=== PATIENT | female | born 1945 | race Two or more races ===

== ENCOUNTER 2022-06-11 16:42 | Emergency (ER) | payer OTHER, MEDICAID ==
[~2022-06-11] VITALS: Ht 162.6 cm; Wt 112.0 kg
[2022-06-11 16:45] VITALS: BP 122/73
[2022-06-11 17:48] LABS: Basophils # (auto) 0.1 10 ^3/uL (0-0.2); Basophils % (auto) 0.7 % (0.0-2.0); Eosinophils # (auto) 0.2 10 ^3/uL (0-0.8); Eosinophils % (auto) 2.1 % (0.0-7.0); Hematocrit 42.7 % (36.0-46.0); Hemoglobin 14.3 g/dL (12.2-16.2); Lymphocytes # (auto) 2.3 10 ^3/uL (0.4-5.4); Lymphocytes % (auto) 28.2 % (10.0-50.0); Mean Corpuscular Hemoglobin 30.6 pg (28.0-32.0); Mean Corpuscular Hgb Conc. 33.4 g/dL (32.0-36.0); Mean Corpuscular Volume 91.5 fL (80.0-100.0); Monocytes # (auto) 0.8 10 ^3/uL (0-1.3); Monocytes % (auto) 9.1 % (0.0-12.0); Neutrophils % (auto) 59.9 % (37.0-80.0); Nucleated Red Blood Cells % 0.2 %; Red Blood Cells 4.67 10^6/uL (4.0-5.20); Red Cell Distribution Width 14.7 % (11.8-14.3); White Blood Cell 8.3 10^3/uL (4.4-10.8)
[2022-06-11 18:04] LABS: Albumin 2.9 g/dL (3.4-5.0); Anion Gap 4 (5-15); Blood Urea Nitrogen 14 mg/dL (7-18); Carbon Dioxide 25 mmol/L (21-32); Chloride 105 mmol/L (98-107); Glucose 95 mg/dL (74-106); Potassium 4.6 mmol/L (3.5-5.1); Sodium 134 mmol/L (136-145)
[2022-06-11 18:07] LABS: Urine Bacteria MANY /hpf (None Seen); Urine Blood Negative /uL (Negative); Urine Specific Gravity 1.007 (1.001-1.035); Urine WBC 43 /hpf (0 - 5)
[2022-06-11 18:09] LABS: INR 1.13 (0.9-1.15); Partial Thromboplastin Time 25.5 sec (24.6-33.4)
[2022-06-11 18:19] LABS: Alanine Aminotransferase 23 U/L (13-56); Alkaline Phosphatase 88 U/L (45-117); Aspartate Aminotransferase 18 U/L (15-37); BUN/Creatinine Ratio 13.3; Bilirubin, Total 0.4 mg/dL (0.2-1.0); GFR African American 66 mL/min; GFR Non-African American 54 mL/min; Total Protein 8.5 g/dL (6.4-8.2)
[2022-06-11] MEDS ORDERED: CEPH-322 PO (18:20)
[2022-06-11] MEDS ORDERED: METH4PAK PO (18:20)
== END 2022-06-11 20:55 | disposition home or self-care (01) ==
LOC: ER 16:42
DX: J20.9 Acute bronchitis, unspecified (principal); R07.89 Other chest pain; I12.0 Hypertensive chronic kidney disease with stage 5 chronic kidney disease or end stage renal disease; N18.6 End stage renal disease; E03.9 Hypothyroidism, unspecified; Z90.49 Acquired absence of other specified parts of digestive tract; Z79.899 Other long term (current) drug therapy
CPT/HCPCS: 36415; 71045; 71250; 80053; 81001; 83880; 84484; 85025; 85610; 85730; 93005

== ENCOUNTER 2025-02-22 12:57 | Emergency (ER) | payer OTHER, MEDICAID ==
[~2025-02-22] VITALS: Ht 165.1 cm; Wt 118.0 kg
[~2025-02-22 12:57] MED LIST: CEPH250C PO; METH4PAK PO
--- NOTE | 2025-02-22 13:29 | ED.PDOC ---
GI ASSESSMENT HPI Comments 80 y/o F, BIBA, with PMHx of anxiety, depression, ESRD, HTN, and thyroid disease presents to the ED for CC of lower and epigastric abdominal pain. EMS reports, patient is coming from home where she c/o intermittent abdominal pain with associated nausea and vomiting x1week. Patient states, she recently began a course of Abx for a UTI x4days ago; endorses symptoms improving. She has had this pain intermittently for the past few years, however states that her doctor keeps giving her medications, however she has never seen a GI doctor for this. She believes that she has IBS D, however he has never been formally diagnosed with this. She has tried Tylenol for her symptoms at home with minimal improve ment. She states that it makes her symptoms better or worse. Patient denies fever, chills, constipation, diarrhea, or melena. No other symptoms or modifying factors are present at this time. Chief Complaint: Abdominal Pain Time Seen by MD: 13:10 Primary Care Provider: JEMAL Ellis Notes: Nurses Notes, Dba Manager Notes, Medications, Allergies Allergies: Coded Allergies: NO KNOWN ALLERGIES (Unverified , 06/11/22) Home Meds Active Scripts Cephalexin (KEFLEX CAPSULE) 250 Mg Cp, 1 CAP PO QID, #28 CAP Prov:PARDEEP GUY MD 06/11/22 Methylprednisolone (Medrol Dosepak) 4 Mg [place], 4 MG PO UD, #21 TAB UAD Prov:PARDEEP GUY MD 06/11/22 Information Source: Patient, Emergency Med Personnel Mode of Arrival: EMS Timing: Weeks Duration: Intermittent Prehospital treatment: None Vomitus: Watery Stool: Normal Severity: Moderate Recent: None Recent Hx of: None Pain Location: Diffuse Modifying Factors: Nothing Associated sign and symptoms: Nausea, Vomiting, Abdominal Pain Past Medical History PAST MEDICAL HISTORY: Anxiety, Depression, ESRD, HTN, Thyroid Surgical History: Cholecystectomy, Tubal Ligation DAY TRADER History: Denies all DAY TRADER Hx Family History Family History: Family hx of lung forrest Social History Smoker: Non-Smoker Alcohol: Occasionally Drugs: Denies Drug Use Lives In: Home Constitutional: denies: chills, diaphoresis, fatigue, fever, malaise, sweats, weakness, others EENTM: denies: blurred vision, double vision, ear bleeding, ear discharge, ear drainage, ear pain, ear ringing, eye pain, eye redness, hearing loss, mouth pain, mouth swelling, nasal discharge, nose bleeding, nose congestion, nose pain, photophobia, tearing, throat pain, throat swelling, voice changes, others Respiratory: denies: cough, hemoptysis, orthopnea, SOB at rest, shortness of breath, SOB with excertion, stridor, wheezing, others Cardiovascular: denies: chest pain, dizzy spells, diaphoresis, Dyspnea on exertion, edema, irregular heart beat, left arm pain, lightheadedness, palpitations, PND, syncope, others Gastrointestinal: reports: abdominal pain, nausea, vomiting; denies: abdomen distended, blood streaked bowels, constipated, diarrhea, dysphagia, difficulty swallowing, hematemesis, melena, poor appetite, poor fluid intake, rectal bleeding, rectal pain, others Genitourinary: denies: abnormal vagina bleeding, burning, dyspareunia, dysuria, flank pain, frequency, hematuria, incontinence, pain, , vagina discharge, urgency, others Neurological: denies: dizziness, fainting, headache, left sided numbness, left sided weakness, numbness, paresthesia, pre-existing deficit, right sided numb ness, right sided weakness, seizure, speech problems, tingling, tremors, weakness, others Musculoskeletal: denies: back pain, gout, joint pain, joint swelling, muscle pain, muscle stiffness, neck pain, others Integumetry: denies: bruises, change in color, change in hair/nails, dryness, laceration, lesions, lumps, rash, wounds, others Allergic/Immunocompromised: denies: Difficulty Healing, Frequent Infections, Hives, Itching, others Hematologic/Lymphatic: denies: anemia, blood clots, easy bleeding, easy bruising, swollen glands, others Endocrine: denies: excessive hunger, excessive sweating, excessive thirst, excessive urination, flushing, intolerance to cold, intolerance to heat, unexplained weight gain, unexplained weight loss, others Psychiatric: denies: anxiety, bipolar disorder, depression, hopeless, panic disorder, schizophrenia, sleepless, suicidal, others All Other Systems: Reviewed and Negative Physical Exam General Appearance: No Apparent Distress, Normal HEENT: Normal ENT Inspection, Pharynx Normal Neck: Full Range of Motion, Non-Tender, Normal, Normal Inspection Respiratory: Chest Non-Tender, Lungs Clear, No Accessory Muscle Use, No Respiratory Distress, Normal Breath Sounds Cardiovascular: No Edema, No Murmur, No Gallop, Normal Peripheral Pulses, Regular Rate/Rhythm Breast Exam: Deferred Gastrointestinal: Diffuse, No Organomegaly, No Pulsatile Mass, Normal Bowel Sounds, Soft, Tenderness, Other (Palpable ventral hernia in the epigastric region, easily reducible) Genitalia: Deferred Pelvic: Deferred Rectal: Deferred Extremities: No calf tenderness, Normal capillary refill, Normal inspection, Normal range of motion, Non-tender, No pedal edema Musculoskeletal : Apperance: Normal Neurologic: Alert, printed circuit board panels trimmer II-XII nml as Tested, No Motor Deficits, Normal Affect, Normal Mood, No Sensory Deficits Cerebellar Function: Normal Reflexes: Normal Skin: Dry, Normal Color, Warm Lymphatic: No Adenopathy Was a procedure done? Was a procedure done?: No GI differential Dx Differential Diagnosis: Appendicitis, Angina/MN, Cholangitis, Constipation, Div erticular disease, Gastritis/PUD, Gastroenteritis, Hernia, Inflammatory BD, Pancreatitis, UTI, Dehydration, Electrolyte Imbalance, Bacterial, Viral, Renal Failure, Kidney Stone X-Ray, Labs, Meds, VS Vital Signs Date Time Temp Pulse Resp B/P (MAP) Pulse Ox O2 Delivery O2 Flow Rate FiO2 02/22/25 18:01 94 15 120/69 02/22/25 17:54 94 16 120/69 (86) 95 02/22/25 15:42 85 19 153/70 02/22/25 15:42 98.0 85 20 153/70 (97) 95 98.0 02/22/25 13:09 98.5 93 18 120/81 94 98.5 Lab Test 02/22/25 17:57 02/22/25 17:02 02/22/25 15:01 02/22/25 13:42 Range/Units Urine Color Yellow Yellow Urine Clarity Clear Clear Urine pH 6.0 5.0-9.0 Urine Specific [place] > 1.050 H 1.001-1.035 Urine Protein 1+ H Negative Urine Ketones Negative Negative Urine Blood Negative Negative /uL Urine Nitrite Negative Negative Urine Bilirubin Negative Negative Urine Urobilinogen Normal Negative mg/dL Urine Leukocyte Esterase Negative Negative /uL Urine RBC 1 0 - 4 /hpf Urine Microscopic WBC 5 0-5 /HPF Urine Squamous Epithelial Cells Mod <5 /hpf Urine Bacteria None seen None Seen /hpf Urine Mucus Few None Seen Urine Glucose Normal Normal mg/dL Troponin I High Sensitivity 4 3 L 3 L </=34 ng/L White Blood Count 9.1 4.4-10.8 10^3/uL Red Blood Count 4.70 4.0-5.20 10^6/uL Hemoglobin 14.4 12.2-16.2 g/dL Hematocrit 43.1 36.0-46.0 % Mean Corpuscular Volume 91.8 80.0-100.0 fL Mean Corpuscular Hemoglobin 30.7 28.0-32.0 pg Mean Corpuscular Hemoglobin Concent 33.4 32.0-36.0 g/dL Red Cell Distribution Width 15.5 H 11.8-14.3 % Platelet Count 215 140-450 10^3/uL Mean Platelet Volume 8.9 6.9-10.8 fL Neutrophils (%) (Auto) 68.6 37.0-80.0 % Lymphocytes (%) (Auto) 23.2 10.0-50.0 % Monocytes (%) (Auto) 5.8 0.0-12.0 % Eosinophils (%) (Auto) 1.6 0.0-7.0 % Basophils (%) (Auto) 0.8 0.0-2.0 % Neutrophils # (Auto) 6.2 1.6-8.6 10 ^3/uL Lymphocytes # (Auto) 2.1 0.4-5.4 10 ^3/uL Monocytes # (Auto) 0.5 0-1.3 10 ^3/uL Eosinophils # (Auto) 0.1 0-0.8 10 ^3/uL Basophils # (Auto) 0.1 0-0.2 10 ^3/uL Nucleated Red Blood Cells 0.0 % Sodium Level 138 136-145 mmol/L Potassium Level 4.1 3.5-5.1 mmol/L Chloride Level 102 98-107 mmol/L Carbon Dioxide Level 26 20-31 mmol/L Anion Gap 10 5-15 Blood Urea Nitrogen 10 9-23 mg/dL Creatinine 1.00 0.550-1.02 mg/dL Glomerular Filtration Rate Calc 58 >90 mL/min BUN/Creatinine Ratio 10.0 10.0-20.0 Serum Glucose 117 H 74-106 mg/dL Calcium Level 9.3 8.7-10.4 mg/dL Total Bilirubin 0.5 0.2-1.0 mg/dL Aspartate Amino Transferase (AST) 14 13-40 U/L Alanine Aminotransferase (ALT) 13 7-40 U/L Alkaline Phosphatase 70 46-116 U/L Total Protein 7.5 5.7-8.2 g/dL Albumin 4.0 3.2-4.8 g/dL Lipase 26 12-53 U/L Current Medications Medications (Trade) Dose Ordered Sig/Michael Route Start Time Stop Time Status Last Admin Ondansetron HCl (Zofran) 4 mg ONCE ONCE IV 02/22/25 13:15 02/22/25 13:18 DC 02/22/25 15:42 Morphine Sulfate 4 mg ONCE ONCE IV 02/22/25 13:15 02/22/25 13:18 DC 02/22/25 15:42 [place] [id number] Ph: [phone] DIAGNOSTIC IMAGING Diagnostic Imaging Report : [id number] Signed PATIENT: KAVYA RAMESHCCT: [id number] UNIT: [id number] : 1945 LOC: ER ROOM / BED: / AGE / SEX: 80 / F ADM STATUS: REG ER SERVICE 11 ORDERING PHYSICIAN: WANDER FINNEGAN MD PROCEDURE(s): ABPLIV - CT AB PEL WITH IV CON ONLY REASON: lower abdominal pain ORDER NUMBER(s): [id number], ACCESSION NUMBER(s): [id number] Exam: CT CT AB PEL WITH IV CON ONLY History: lower abdominal pain Comparison Study: None TECHNIQUE: Multidetector CT of the abdomen pelvis with IV contrast. Axial, co lalito and sagittal multiplanar reformats were obtained from the axial data set by the technologist. Radiation Dose Information: CT Dose: CTDI volume is 27.78 mGy. Dose-length product is 1458.07 mGy*cm FINDINGS: Lung bases are clear. Partially visualized heart is unremarkable. Hepatic steatosis. Mild splenomegaly. Otherwise, liver, spleen, pancreas and adrenal glands unremarkable. Status post cholecystectomy. Small bilateral renal parapelvic cyst. Otherwise, kidneys, ureters and urinary bladder unremarkable. Uterus and adnexa areunremarkable. Small hiatal hernia. Stomach is unremarkable. Small bowel loops unremarkable. Appendix is unremarkable. Mild wall thickening of the ascending colon. Sigmoid diverticulosis with minimal adjacent fat stranding and mild wall thickening of the sigmoid. Small to moderate amount of fecal material within the colon. No evidence of intraperitoneal free air or free fluid. No evidence of aortic aneurysm or dissection. Mild atherosclerotic calcification of the aorta. No significant lymphadenopathy. Small fat containing umbilical hernia. Moderate fat and ascitic fluid containing supraumbilical hernia. Peripherally calcified partially visualized bilateral breast implants. No evidence of acute osseous abnormalities. IMPRESSION: Mild sigmoid diverticulitis /sigmoiditis. Colitis involving the ascending colon. Follow-up is Imaging is recommended to exclude Neoplasm. Moderate fat and small fluid containing supraumbilical hernia with small fat containing umbilical hernia. Hepatic steatosis. Small hiatal hernia. ATED BY: ESTRELLITA DUNCAN DO DICTATED DATE/TIME: 02/22/25 1557 SIGNED BY: ESTRELLITA DUNCAN DO SIGNED DATE/TIME: 02/22/25 155 CC: X-Ray, Labs, Meds, VS Comment Patient presents with generalized abdominal pain for the past week, intermittent over the past few years, associated with nausea and vomiting setting of recently diagnosed UTI. Vital signs stable and exam rectal for epigastric and lower abdominal tenderness Lab work (CBC, BMP) to evaluate for evidence of severe anemia, electrolyte abnormality including hypokalemia, hyperkalemia, hypernatremia, hyponatremia, hyperglycemia, hypoglycemia, etc. EKG and troponin to evaluate for evidence of arrhythmia, ACS, AMI CT abdomen and pelvis to evaluate for evidence of intra-abdominal emergency including acute appendicitis, diverticulitis, renal stone, SBO, etc. Urinalysis to evaluate for hematuria or infection. IV zofran IV morphine Social determinant surveillance affecting care: Social determinants of health that will affect the patient's care: Poor health literacy (additional time provided an explanation) Poor access to outpatient care/followup (provided outpatient resources) Time of 1ST Reevaluation: 13:40 Reevaluation 1ST: Unchanged Patient Education/Counseling: Diagnosis, Treatment Family Education/Counseling: No Family Present SEPSIS Sepsis Screen Date sepsis recognized/suspect: Feb 22, 2025 Time Sepsis recognized/suspect: 1313 Recent Procedure: No On Antibiotic Therapy: No Respiratory Rate >20: No Heart Rate >90: Yes Temp<36 C (96.8 F) or >38.3 C: No SBP <90 or MAP <65 mmHG: No New Acute Mental Status Change: No Is the patient on CPAP, BIPAP,: No Physician Orders Ct Ab Pel With Iv Con Only (02/22/25 14:12) Electrocardigram (02/22/25 13:15) Electrocardigram (02/22/25 14:15) Electrocardigram (02/22/25 16:15) Vital Signs Date Time Temp Pulse Resp B/P (MAP) Pulse Ox O2 Delivery O2 Flow Rate FiO2 02/22/25 18:01 94 15 120/69 02/22/25 17:54 94 16 120/69 (86) 95 02/22/25 15:42 85 19 153/70 02/22/25 15:42 98.0 85 20 153/70 (97) 95 98.0 02/22/25 13:09 98.5 93 18 120/81 94 98.5 Laboratory Tests Test 02/22/25 13:42 White Blood Count 9.1 10^3/uL (4.4-10.8) Medications Medications Dose Ordered Sig/Michael Route Start Time Stop Time Status Last Admin Dose Admin Morphine Sulfate 4 mg ONCE ONCE IV 02/22/25 13:15 02/22/25 13:18 DC 02/22/25 15:42 Ondansetron HCl 4 mg ONCE ONCE IV 02/22/25 13:15 02/22/25 13:18 DC 02/22/25 15:42 Departure 1 Departure Time of Disposition: 19:46 (On reassessment, patient's symptoms improved and patient tolerating p.o.. Labs unremarkable and imaging showing mild sigmoid diverticulitis. We will discharge her p.o. antibiotics. Discussed with patient need for outpatient follow-up with GI. Given strict return precaution and PMD follow-up.) Impression: Primary Impression: Acute generalized abdominal pain Additional Impressions: Acute nausea with nonbilious vomiting Acute diverticulitis Disposition: HOME / SELF CARE / HOMELESS Condition: Good Additional Instructions: You have diverticulitis today. Follow up with your PMD and GI for further evaluation. Take your antibiotics as prescribed. Slowly advanced your diet as tolerated. e-Prescriptions Ciprofloxacin Hcl (Ciprofloxacin Hcl) 500 Mg Tab 1 TAB PO BID, #20 TAB Prov: WANDER FINNEGAN MD 02/22/25 Metronidazole (Flagyl) 500 Mg Tab 1 TAB PO TID, #30 TAB Prov: WANDER FINNEGAN MD 02/22/25 Discharged With: Self Critical Care Note Critical Care Time?: No Stability Stability form required: No Heart Score Heart Score: Heart Score Response (Comments) Value History N/A 0 EKG N/A 0 Age N/A 0 Risk Factors N/A 0 Troponin N/A 0 Total 0 I personally scribed for WANDER FINNEGAN MD ([email or web address]) on 02/22/25 at 13:29. Electronically submitted by Earlene Sanchez [email or web address]). I personally scribed for WANDER FINNEGAN MD ([email or web address]) on 02/22/25 at 16:12. E lectronically submitted by Earlene Sanchez [email or web address]). WANDER FINNEGAN MD Feb 22, 2025 13:29
[2025-02-22 14:06] LABS: Hematocrit 43.1 % (36.0-46.0); Hemoglobin 14.4 g/dL (12.2-16.2); Mean Corpuscular Hemoglobin 30.7 pg (28.0-32.0); Mean Corpuscular Volume 91.8 fL (80.0-100.0); Nucleated Red Blood Cells % 0.0 %
[2025-02-22 14:20] LABS: Alanine Aminotransferase 13 U/L (7-40); Albumin 4.0 g/dL (3.2-4.8); Alkaline Phosphatase 70 U/L (46-116); Anion Gap 10 (5-15); BUN/Creatinine Ratio 10.0 (10.0-20.0); Bilirubin, Total 0.5 mg/dL (0.2-1.0); Blood Urea Nitrogen 10 mg/dL (9-23); Calcium 9.3 mg/dL (8.7-10.4); Carbon Dioxide 26 mmol/L (20-31); Chloride 102 mmol/L (98-107); Lipase 26 U/L (12-53); Potassium 4.1 mmol/L (3.5-5.1); Sodium 138 mmol/L (136-145); Total Protein 7.5 g/dL (5.7-8.2)
[2025-02-22 14:22] LABS: Glucose 117 mg/dL (74-106)
[2025-02-22] MEDS: ONDANSETRON HCL 4 MG/2 ML VIAL IV ONE (15:42)
[2025-02-22] MEDS: MORPHINE SULFATE 4 MG/ML SYR/VIAL IV ONE (15:42)
--- NOTE | 2025-02-22 15:59 | DVH ---
Exam: CT CT AB PEL WITH IV CON ONLY History: lower abdominal pain Comparison Study: None TECHNIQUE: Multidetector CT of the abdomen pelvis with IV contrast. Axial, coronal and sagittal multiplanar reformats were obtained from the axial data set by the technologist. Radiation Dose Information: CT Dose: CTDI volume is 27.78 mGy. Dose-length product is 1458.07 mGy*cm FINDINGS: Lung bases are clear. Partially visualized heart is unremarkable. Hepatic steatosis. Mild splenomegaly. Otherwise, liver, spleen, pancreas and adrenal glands unremarkable. Status post cholecystectomy. Small bilateral renal parapelvic cyst. Otherwise, kidneys, ureters and urinary bladder unremarkable. Uterus and adnexa areunremarkable. Small hiatal hernia. Stomach is unremarkable. Small bowel loops unremarkable. Appendix is unremarkable. Mild wall thickening of the ascending colon. Sigmoid diverticulosis with minimal adjacent fat stranding and mild wall thickening of the sigmoid. Small to moderate amount of fecal material within the colon. No evidence of intraperitoneal free air or free fluid. No evidence of aortic aneurysm or dissection. Mild atherosclerotic calcification of the aorta. No significant lymphadenopathy. Small fat containing umbilical hernia. Moderate fat and ascitic fluid containing supraumbilical hernia. Peripherally calcified partially visualized bilateral breast implants. No evidence of acute osseous abnormalities. IMPRESSION: Mild sigmoid diverticulitis /sigmoiditis. Colitis involving the ascending colon. Follow-up is Imaging is recommended to exclude Neoplasm. Moderate fat and small fluid containing supraumbilical hernia with small fat containing umbilical hernia. Hepatic steatosis. Small hiatal hernia.
[2025-02-22] MEDS: IOHEXOL 300 MG/ML 100ML BOTTLE IJ ONE (16:17)
[2025-02-22 19:32] LABS: Urine Protein, UAD 1+ (Negative)
[2025-02-22] MEDS ORDERED: METR-344 PO (19:48)
[2025-02-22] MEDS ORDERED: CIPR500T4 PO (19:48)
[2025-02-22 21:08] VITALS: BP 156/65; PULSE 70; RESP 20; TEMP 98.3; O2SAT 96
== END 2025-02-22 20:28 | disposition home or self-care (01) ==
LOC: EDBD 12:57 → ER 12:57
DX: K57.32 Diverticulitis of large intestine without perforation or abscess without bleeding (principal); R11.2 Nausea with vomiting, unspecified; R10.84 Generalized abdominal pain; F10.90 Alcohol use, unspecified, uncomplicated; F32.A Depression, unspecified; F41.9 Anxiety disorder, unspecified; I12.0 Hypertensive chronic kidney disease with stage 5 chronic kidney disease or end stage renal disease; N18.6 End stage renal disease; Z79.899 Other long term (current) drug therapy; Z90.49 Acquired absence of other specified parts of digestive tract; Z87.440 Personal history of urinary (tract) infections
CPT/HCPCS: 36415; 74177; 80053; 81001; 83690; 84484; 85025; 96374; 96375; 99285; J2270; J2405; Q9967